=== PATIENT | female | born 1990 | race Two or more races ===

== ENCOUNTER 2017-09-03 20:31 | Emergency (ER) | payer SELFPAY ==
--- NOTE | 2017-09-03 20:51 | CPEKG ---
Heart Rate: 67 RR Interval: 896 P-R Interval: 168 QRSD Interval: 94 QT Interval: 388 QTC Interval: 410 P [place]: -5 QRS [place]: 45 T Wave [place]: 23 EKG Severity - NORMAL ECG - EKG Impression: SINUS RHYTHM Electronically Signed By: Gvain Chamberlain 03-Sep-2017 21:13:19
[2017-09-03] MEDS ORDERED: NS 1,000 ML IV ONE (21:22)
--- NOTE | 2017-09-03 21:24 | EDPHY ---
H & P Stated Complaint: "Chest pressure when i bend forward", dizzy, syncope Time Seen by Provider: 09/03/17 21:12 HPI/ROS: CHIEF COMPLAINT: Chest discomfort HISTORY OF PRESENT ILLNESS: The patient is a healthy 26-year-old female who comes to the emergency department with her complaining of chest pressure particularly when she leans forward. She noticed it around 730. She noticed that it was worse when she bent over to pick something up off the ground. After about 30 min it began to resolve. It occurred again here when she was leaning forward to get her lungs auscultated. Although it was much more mild. No recent fevers or infections. No cardiac history. No no recent travel. She denies shortness of breath or diaphoresis or nausea tonight. She is not a smoker. She does not take any hormones. No leg pain or swelling. No trauma. REVIEW OF SYSTEMS: Constitutional: denies: chills, fever, recent illness, recent injury EENTM: denies: blurred vision, double vision, nose congestion Respiratory: denies: cough, shortness of breath Cardiac: See HPI denies: irregular heart rate, lightheadedness, palpitations Gastrointestinal/Abdominal: denies: abdominal pain, diarrhea, nausea, vomiting, blood streaked stools Genitourinary: denies: dysuria, frequency, hematuria, pain Musculoskeletal: denies: joint pain, muscle pain Skin: denies: lesions, rash, jaundice, bruising Neurological: denies: headache, numbness, paresthesia, tingling, dizziness, weakness Hematologic/Lymphatic: denies: blood clots, easy bleeding, easy bruising Immunologic/allergic: denies: HIV/AIDS, transplant EXAM: GENERAL: Well-appearing, well-nourished and in no acute distress. HEAD: Atraumatic, normocephalic. EYES: Pupils equal round and reactive to light, extraocular movements intact, sclera anicteric, conjunctiva are normal. ENT: TMs normal, nares patent, oropharynx clear without exudates. Moist mucous membranes. NECK: Normal range of motion, supple without lymphadenopathy or JVD. LUNGS: Breath sounds clear to auscultation bilaterally and equal. No wheezes rales or rhonchi. HEART: Regular rate and rhythm without murmurs, rubs or gallops. ABDOMEN: Soft, nontender, normoactive bowel sounds. No guarding, no rebound. No masses appreciated. BACK: No CVA tenderness, no spinal tenderness, step-offs or deformities EXTREMITIES: Normal range of motion, no pitting or edema. No clubbing or cyanosis. NEUROLOGICAL: Cranial nerves II through XII grossly intact. Normal speech, normal gait. 5/5 strength, normal movement in all extremities, normal sensation PSYCH: Normal mood, normal affect. SKIN: Warm, dry, normal turgor, no visible rashes or lesions. Source: Patient Exam Limitations: No limitations - Personal History LMP (Females 10-55): 1-7 Days Ago Current Tetanus Diphtheria and Acellular Pertussis (TDAP): Unsure - Medical/Surgical History Hx Asthma: No Hx Chronic Respiratory Disease: No Hx Diabetes: No Hx Cardiac Disease: No Hx Renal Disease: No Hx Cirrhosis: No Hx Alcoholism: No Hx HIV/AIDS: No Hx Splenectomy or Spleen Trauma: No Other PMH: denies - Family History Significant Family History: No pertinent family hx - Social History Smoking Status: Never smoked Alcohol Use: Sober Drug Use: None Constitutional: Initial Vital Signs Temperature (C) 36.7 C 09/03/17 20:36 Heart Rate 85 09/03/17 20:36 Respiratory Rate 20 09/03/17 20:36 Blood Pressure 118/81 H 09/03/17 20:36 O2 Sat (%) 98 09/03/17 20:36 O2 Delivery Mode Room Air Allergies/Adverse Reactions: No Known Allergies Allergy (Unverified 09/03/17 20:35) Medical Decision Making - Diagnostics EKG Interpretation: An EKG obtained and was read and documented in trace view. Please see trace view for full reading and report. Sinus rhythm, no acute ischemic changes no [place] depression Imaging: Discussed imaging studies w/ marine plumber Radiologist ED Course/Re-evaluation: The patient's symptoms have resolved. No exam findings or lab work consistent with pericarditis. The patient feels reassured. She states that she feels "perfect". We discussed indications for returning. Differential Diagnosis: Partial list of the Differential diagnosis considered include but were not limited to; pericarditis, chest wall pain, anxiety and although unlikely based on the history and physical exam, I also considered PE, acute coronary disease, dissection. I discussed these differential diagnoses and the plan with the patient as well as the usual and expected course. The patient understands that the diagnosis is provisional and that in medicine we are not always correct and that further workup is often warranted. Usual and customary warnings were given. All of the patient's questions were answered. The patient was instructed to return to the emergency department should the symptoms at all worsen or return, otherwise to followup with the physician as we discussed. - Data Points Laboratory Results: Laboratory Results 09/03/17 20:50 09/03/17 20:50 Medications Given: Discontinued Medications Sodium Chloride (Ns) 1,000 mls @ 0 mls/hr IV EDNOW ONE; Wide Open PRN Reason: Protocol Stop: 09/03/17 21:23 Last Admin: 09/03/17 22:03 Dose: 1,000 mls Point of Care Test Results: Chemistry 09/03/17 22:06 POC Troponin I 0.01 ng/mL ng/mL (0.00-0.08) Departure - Departure Disposition: Home, Routine, Self-Care Clinical Impression: Chest pain Qualifiers: Chest pain type: unspecified Qualified Code(s): R07.9 - Chest pain, unspecified Condition: Fair Instructions: Chest Pain (ED) Referrals: NONE *PRIMARY CARE P,. [Primary Care Provider] - As per Instructions
[2017-09-03 21:41] LABS: INR 1.06 (0.83-1.16)
[2017-09-03 21:55] LABS: PLATELET COUNT 241 10^3/uL (150-400)
[2017-09-03 22:04] VITALS: BP 112/63
== END 2017-09-03 22:54 | disposition home or self-care (01) ==
DX: R07.9 Chest pain, unspecified (principal); E86.9 Volume depletion, unspecified
CPT/HCPCS: 84484-PO

== ENCOUNTER 2018-05-31 19:32 | Emergency (ER) | payer MEDICAID ==
[2018-05-31 19:47] VITALS: BP 134/72
--- NOTE | 2018-05-31 20:00 | EDPHY ---
H & P Stated Complaint: Dizzy for 40 minutes after eating cake. Time Seen by Provider: 05/31/18 19:44 HPI/ROS: Chief Complaint: Dizziness HPI: 27-year-old woman has had episode of dizziness a lasting about 10 min after eating a very sugary piece of cake. Patient states she has been avoiding loss of sugar for the last year an attempt to help control her acne. She did not lose conscious. No chest pain or palpitations. She came the emergency department because her mother was concerned about family history of diabetes and thyroid disease. She denies any recent weight loss or weight gain. No increasing thirst or urination. She has completely returned to baseline and is without complaint at this time. ROS: 10 systems were reviewed and were negative except those elements noted in the HPI. PMH: Denies Social History: No smoking, no alcohol, no recreational drug use Family History: non-contributory Physical Exam: Gen: Awake, Alert, No Distress HEENT: Nose: no rhinorrhea Eyes: PERRLA, EOMI Mouth: Moist mucosa Neck: Supple, no JVD Chest: nontender, lungs clear to auscultation Heart: S1, S2 normal, no murmur Abd: Soft, non-tender, no guarding Back: no CVA tenderness, no midline tenderness Ext: no edema, non-tender Skin: no rash Neuro: CN II-XII intact, Sensation grossly intact, Strength 5/5 in bilateral upper and lower extremities - Personal History LMP (Females 10-55): Extended Cycle BCP/Inj Current Tetanus/Diphtheria Vaccine: Unsure Current Tetanus Diphtheria and Acellular Pertussis (TDAP): Unsure - Medical/Surgical History Hx Asthma: No Hx Chronic Respiratory Disease: No Hx Diabetes: No Hx Cardiac Disease: No Hx Renal Disease: No Hx Cirrhosis: No Hx Alcoholism: No Hx HIV/AIDS: No Hx Splenectomy or Spleen Trauma: No Other PMH: denies - Social History Smoking Status: Never smoked Constitutional: Initial Vital Signs Temperature (C) 36.7 C 05/31/18 19:44 Heart Rate 86 05/31/18 19:44 Respiratory Rate 16 05/31/18 19:44 Blood Pressure 134/72 H 05/31/18 19:44 O2 Sat (%) 100 05/31/18 19:44 O2 Delivery Mode Room Air Allergies/Adverse Reactions: No Known Allergies Allergy (Verified 05/31/18 19:44) Home Medications: Medication Instructions Recorded NK [No Known Home Meds] 05/31/18 Medical Decision Making ED Course/Re-evaluation: Patient presenting with an episode of dizziness now resolved after eating large amount of sugar. She is completely neurologic exam. No evidence of acute emergent medical process. She does not want further evaluation. I have encouraged her to follow up with primary care. Departure - Departure Disposition: Home, Routine, Self-Care Clinical Impression: Dizziness Condition: Good Instructions: Normal Exam (ED) Additional Instructions: Follow up at [facility] in 3-4 days for further evaluation. Referrals: [facility],. [Clinic] - As per Instructions
== END 2018-05-31 20:06 | disposition left against medical advice (07) ==
LOC: CED 19:32
DX: R42 Dizziness and giddiness (principal)
CPT/HCPCS: 99282-ER

== ENCOUNTER 2018-08-09 15:06 | Emergency (ER) | payer OTHER ==
[2018-08-09] MEDS ORDERED: IBUPROFEN 600 MG TAB PO ONE ×3 (15:17→15:37)
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
[2018-08-09 16:34] VITALS: BP 128/78
== END 2018-08-09 16:34 | disposition home or self-care (01) ==
LOC: EDUNIT#
DX: S13.9XXA Sprain of joints and ligaments of unspecified parts of neck, initial encounter (principal); M53.3 Sacrococcygeal disorders, not elsewhere classified; V49.59XA Passenger injured in collision with other motor vehicles in traffic accident, initial encounter; Y92.410 Unspecified street and highway as the place of occurrence of the external cause